=== PATIENT | male | born 1985 | race Caucasian/White ===

== ENCOUNTER 2019-06-18 19:22 | Emergency (ER) | payer BC ==
[2019-06-18] MEDS ORDERED: Lactated Ringers 1,000 ML IV ONE (19:38)
[2019-06-18] MEDS ORDERED: Pantoprazole 40 MG Vial IVPUSH ONE (19:38)
[2019-06-18] MEDS ORDERED: Famotidine 20 MG/2 ML SDV IVPUSH ONE (19:38)
--- NOTE | 2019-06-18 19:38 | EDM.PDOC ---
ED HPI GENERAL MEDICAL PROBLEM - General Chief Complaint: Abdominal Pain Stated Complaint: RIGHT ABDOMINAL PAIN Time Seen by Provider: 06/18/19 19:30 Source of Information: Denies: Old Records (No [facility] records available) History Limitations: Reports: No Limitations - History of Present Illness INITIAL COMMENTS - FREE TEXT/NARRATIVE: The patient drove himself to the emergency room via private automobile for evaluation of 09/05 mostly right lower quadrant abdominal pain-type pain with symptoms starting at about 10 AM yesterday morning. He did take some OTC Tums at that time with only minimal improvement of his symptoms. Since that time he has had increased diarrhea with almost hourly episodes yesterday evening, including some mild gross hematochezia. He denies any history of poisoning, infection, or previous-type symptoms. No recent history of other abdominal pain , heartburn, emesis, melena, gross hematochezia, or any food intolerance, including fatty foods, etc. with some nausea earlier today. He denies any gross hematuria, colic, or other UTI symptoms. The patient also denies any recent fever, cough, wheezing, dyspnea, etc. with no recent use of antipyretic medication. In addition, some mild anorexia today with the patient only drinking water with last fluid intake about 1.5 hours prior to arrival. He did eat solid food 9 PM yesterday. Onset: Gradual Onset Date: 06/17/19 Onset Time: 10:00 Duration: Getting Worse, Intermittent Location: Reports: Abdomen. Denies: Head, Face, Neck, Chest, Back, Pelvis, Upper Extremity, Left, Upper Extremity, Right, Lower Extremity, Left, Lower Extremity, Right, Radiates to Quality: Reports: Stabbing, Other (Cramping) Severity: Moderate Improves with: Reports: None Worsens with: Reports: None Context: Reports: Other (As above). Denies: Sick Contact, Trauma Associated Symptoms: Reports: Loss of Appetite, Nausea/Vomiting (As above). 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 Denies: Allergic Rhinitis, Cataract, Glaucoma, Hard of Hearing, Macular Degeneration, Otitis Media, Retinal Detachment, Sinusitis Other HEENT History: Patient wears glasses and soft contact lenses. Cardiovascular History: Reports: Hypertension, Other (See Below). Denies: Afib , Aneurysm, Arrhythmia, Blood Clots/VTE/DVT, CAD, Heart Murmur, High Cholesterol , OH, Syncope Other Cardiovascular History: History of borderline hypertension with no previous medical therapy. He does not know his cholesterol status. Respiratory History: Reports: None. Denies: Asthma, Bronchitis, Recurrent, COPD , Intubation, Previous, PE, Pneumonia, Recurrent, Pneumothorax, Sleep Apnea, TB Gastrointestinal History: Reports: None. Denies: Bowel Obstruction, Celiac Disease, Cholelithiasis, Chronic Constipation, Chronic Diarrhea, GERD, GI Bleed , Hepatitis, Inflammatory Bowel Disease, Irritable Bowel Syndrome, Jaundice, Pancreatitis, PUD Genitourinary History: Reports: None. Denies: Acute Renal Failure, Chronic Renal Insuffiency, Renal Calculus, STD, Urinary Incontinence, UTI, Recurrent Musculoskeletal History: Reports: None. Denies: Amputation, Arthritis, Back Pain, Chronic, Fracture, Gout, Neck Pain, Chronic, Osteoarthritis, RA, SLE Neurological History: Reports: Concussion, Head Trauma, Other (See Below). Denies: CVA, Headaches, Chronic, Migraines, MS, Neuropathy, Peripheral, Parkinson's, Seizure, TIA, Vertigo Other Neuro History: Head concussion secondary to hockey at about age 18. Psychiatric History: Reports: None. Denies: Abuse, Victim of, ADD, ADHD, Addiction, Anxiety, Depression, Psych Hospitalization(s), PTSD, Suicide Attempt , Suicidal Ideation Endocrine/Metabolic History: Reports: None. Denies: Diabetes, Type I, Diabetes , Type II, Diabetes Mellitus, Type 3c, Hypothyroidism, IDDM Hematologic History: Reports: None. Denies: Anemia, Blood Transfusion(s) Immunologic History: Reports: None. Denies: AIDS, SLE Oncologic (Cancer) History: Reports: None. Denies: Basal Cell Carcinoma, Colon , Hodgkin's Lymphoma, Leukemia, Lymphoma, Malignant Melanoma, Non-Hodgkin's Lymphoma, Squamous Cell Carcinoma Dermatologic History: Reports: None. Denies: Eczema, Psoriasis - Infectious Disease History Infectious Disease History: Reports: None. Denies: C-Difficile, Chicken Pox, Measles, Meningitis, Mononucleosis, Mumps, Pertussis (Whooping Cough), Rheumatic Fever, Rubella, Scarlet Fever, Shingles, TB, VRE - Past Surgical History Head Surgeries/Procedures: Reports: None HEENT Surgical History: Reports: Oral Surgery, Other (See Below). Denies: Adenoidectomy, Cataract Surgery, Eye Surgery, Laser Surgery, LASIK, Myringotomy w Tube(s), Naso-Sinus Surgery, Tonsillectomy Other HEENT Surgeries/Procedures: [place] teeth extraction 4 at about age 25. Cardiovascular Surgical History: Reports: None. Denies: Varicose Respiratory Surgical History: Reports: None. Denies: Thoracentesis GI Surgical History: Reports: None. Denies: Appendectomy, Cholecystectomy, Colonoscopy, EGD, Hernia, Abdominal, Hernia, Inguinal, Hernia Repair/Other Male Surgical History: Reports: Circumcision, Other (See Below). Denies: Vasectomy Other Male Surgeries/Procedures: Circumcision as an infant. Endocrine Surgical History: Reports: None. Denies: Thyroid Biopsy Neurological Surgical History: Reports: None. Denies: C-Spine, Discectomy, Laminectomy, Lumbar Spine, Sacral Spine, Spinal Fusion, Thoracic Spine, Vertebroplasty Musculoskeletal Surgical History: Denies: Arthroscopic Knee, Arthroscopic Procedure, Carpal Tunnel, Ganglion Cyst, Joint Replacement, ORIF, Shoulder Surgery Oncologic Surgical History: Reports: None Dermatological Surgical History: Reports: None Social & Family History - Family History GI: Reports: None. Denies: Celiac Disease, Cholelithiasis, Colon Polyps, Diverticulitis, Diverticulosis, GERD, GI bleed, Inflammatory Bowel Disease, Irritable Bowel Syndrome, PUD Hematologic: Reports: Polycthemia, Other (See Below) Other Hematologic Family History: Maternal grandmother with polycythemia. - Tobacco Use Smoking Status *Q: Current Every Day Smoker Tobacco Use Within Last Twelve Months: Snuff/Dip Years of Tobacco use: 18 Packs/Tins Daily: 0.5 Packs/Tins Daily Comment: Started at age 18. Used Tobacco, but Quit: No Smoking Cessation Information Provided To Patient: Yes Second Hand Smoke Exposure: No Second Hand Smoke Education Provided: No - Caffeine Use Caffeine Use: Reports: Energy Drinks (One can per day), Soda (2 sodas per day). Denies: Coffee, Tea - Alcohol Use Alcohol Use History: Yes Days Per Week of Alcohol Use: 3 Number of Drinks Per Day: 6 Number of Drinks Per Day Comment: Usually beer. No previous DWIs, problems with alcohol abuse, etc. 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 ED EXAM, GI/ABD - Physical Exam Exam: See Below Exam Limited By: No Limitations General Appearance: Alert, WD/WN, No Apparent Distress Eyes: Bilateral: Normal Appearance (No nystagmus. Patient wearing glasses), EOMI Ears: Normal External Exam, Normal Canal, Hearing Grossly Normal, Normal TMs Nose: Normal Inspection, Normal Mucosa, No Blood Throat/Mouth: Normal Inspection, Normal Lips, Normal Teeth, Normal Gums, Normal Oropharynx, Normal Voice, No Airway Compromise. No: Dysphagia, Perioral Cyanosis Head: Atraumatic, Normocephalic. No: Facial Swelling, Facial Tenderness, Sinus Tenderness Neck: Normal Inspection, Supple, Non-Tender, Full Range of Motion. No: Lymphadenopathy (L), Lymphadenopathy (R), Thyromegaly Respiratory/Chest: No Respiratory Distress, Lungs Clear, Normal Breath Sounds, No Accessory Muscle Use, Chest Non-Tender. No: Pleural Rub, Retractions Cardiovascular: Normal Peripheral Pulses, Regular Rate, Rhythm, No Edema, No Gallop, No JVD, No Murmur, No Rub. No: Gallop/S3, Gallop/S4, Friction Rub GI/Abdominal Exam: No Organomegaly, No Distention, No Abnormal Bruit, No Mass, Pelvis Stable, Tender (Mild to moderate right lower quadrant), Abnormal Bowel Sounds (Mild diffuse increased however not high-pitched in nature). No: Guarding, Rigid, Rebound, Hernia (Male) Exam: Deferred Rectal (Males) Exam: Normal Exam, Normal Rectal Tone, Prostate Normal. No: Black Stool, Bloody Stool, Fecal Impaction (Limited stool in rectal vault), Heme - Stool, Tenderness (No Lucien space tenderness) Back Exam: Normal Inspection, Full Range of Motion. No: CVA Tenderness (L), CVA Tenderness (R), Muscle Spasm Extremities: Normal Inspection, Normal Range of Motion, Non-Tender, No Pedal Edema, Normal Capillary Refill. No: Dru's Sign Neurological: Alert, Oriented, CN II-XII Intact, Normal Cognition, Normal Gait, Normal Reflexes (Negative Babinski's), No Motor/Sensory Deficits Psychiatric: Normal Affect, Normal Mood Skin Exam: Warm, Dry, Intact, Normal Color, No Rash, Tattoo(s) (Multiple). No: Diaphoretic, Ecchymosis, Jaundice, Pallor, Petechiae Lymphatic: No Adenopathy Course - Vital Signs Last Recorded V/S: Last Vital Signs Temp 36.8 C 06/18/19 19:25 Pulse 100 06/18/19 19:25 Resp 16 06/18/19 19:25 BP 149/97 H 06/18/19 19:25 Pulse Ox 100 06/18/19 19:25 Vital Signs - 24 hr 06/18/19 06/18/19 19:25 22:41 Temperature [ 36.8 C 37.1 C Temporal] Pulse, 100 67 Peripheral [ Pulse Oximetry] Respiratory 16 16 Rate Blood Pressure 149/97 H 128/80 [Right Upper Arm] O2 Sat by Pulse 100 100 Oximetry - Orders/Labs/Meds Orders: Active Orders 24 hr Category Date Time Status Communication Order [RC] ROUTINE Care 06/18/19 22:30 Ordered Peripheral IV Care [RC] . DIRECTED Care 06/18/19 19:39 Active Nothing Per Oral Diet [DIET] Diet 06/18/19 Breakfast Active Abdomen Pelvis w Cont [CT] Stat Exams 06/18/19 19:47 Taken Sodium Chloride 0.9% [Saline Flush] Med 06/18/19 19:38 Active 10 ml FLUSH ASDIRECTED PRN Obtain Past Medical Record [OM.PC] Urgent Oth 06/18/19 19:38 Active Peripheral IV Insertion Adult [OM.PC] Stat Oth 06/18/19 19:38 Ordered Resuscitation Status Stat Resus Stat 06/18/19 19:38 Ordered Medication Orders Sodium Chloride (Saline Flush) 10 ml FLUSH ASDIRECTED PRN PRN Reason: Keep Vein Open Last Admin: 06/18/19 20:37 Dose: 10 ml Admin: 06/18/19 20:09 Dose: 10 ml Admin: 06/18/19 19:49 Dose: 10 ml Labs: Laboratory Tests 06/18/19 06/18/19 06/18/19 Range/Units 19:43 19:43 19:43 WBC 14.8 H (4.0-10.2) K/uL RBC 5.55 H (4.33-5.41) M/uL Hgb 18.2 H* (13.1-16.8) g/dL Hct 49.2 H (39.0-49.0) % MCV 88.6 (84.0-98.0) fL MCH 32.8 (28.2-33.3) pg MCHC 37.0 H (31.7-36.0) g/dL RDW 13.3 (11.2-14.1) % Plt Count 284 (150-350) K/uL Neut % (Auto) 78.1 (45.0-80.0) % Lymph % (Auto) 12.1 (10.0-50.0) % Andrew % (Auto) 9.1 (2.0-14.0) % Eos % (Auto) 0.5 (0.0-5.0) % Baso % (Auto) 0.2 (0.0-2.0) % Neut # (Auto) 11.52 H (1.40-7.00) K/uL Lymph # (Auto) 1.79 (0.50-3.50) K/uL Andrew # (Auto) 1.35 H (0.00-1.00) K/uL Eos # (Auto) 0.07 (0.00-0.50) K/uL Baso # (Auto) 0.03 (0.00-0.20) K/uL PT 10.3 (9.5-12.0) SEC INR 1.0 APTT 26.7 (24.5-32.8) SEC Sodium (136-145) mmol/L Potassium (3.5-5.1) mmol/L Chloride (98-107) mmol/L Carbon Dioxide (21.0-32.0) mmol/L BUN (7-18) mg/dL Creatinine (0.51-1.17) mg/dL Est Cr Clr Drug Dosing Estimated GFR (MDRD) mL/min Glucose (74-106) mg/dL Lactic Acid (0.4-2.0) mmol/L Uric Acid (2.6-7.2) mg/dL Calcium (8.5-10.1) mg/dL Magnesium (1.8-2.4) mg/dL Total Bilirubin (0.2-1.0) mg/dL AST (15-37) U/L ALT (12-78) U/L Alkaline Phosphatase (46-116) IU/L Total Protein (6.4-8.2) g/dL Albumin (3.4-5.0) g/dL Amylase 32 (25-115) U/L Lipase (73-393) U/L 06/18/19 06/18/19 Range/Units 19:43 19:43 WBC (4.0-10.2) K/uL RBC (4.33-5.41) M/uL Hgb (13.1-16.8) g/dL Hct (39.0-49.0) % MCV (84.0-98.0) fL MCH (28.2-33.3) pg MCHC (31.7-36.0) g/dL RDW (11.2-14.1) % Plt Count (150-350) K/uL Neut % (Auto) (45.0-80.0) % Lymph % (Auto) (10.0-50.0) % Andrew % (Auto) (2.0-14.0) % Eos % (Auto) (0.0-5.0) % Baso % (Auto) (0.0-2.0) % Neut # (Auto) (1.40-7.00) K/uL Lymph # (Auto) (0.50-3.50) K/uL Andrew # (Auto) (0.00-1.00) K/uL Eos # (Auto) (0.00-0.50) K/uL Baso # (Auto) (0.00-0.20) K/uL PT (9.5-12.0) SEC INR APTT (24.5-32.8) SEC Sodium 141 (136-145) mmol/L Potassium 3.5 (3.5-5.1) mmol/L Chloride 102 (98-107) mmol/L Carbon Dioxide 25.7 (21.0-32.0) mmol/L BUN 10 (7-18) mg/dL Creatinine 0.90 (0.51-1.17) mg/dL Est Cr Clr Drug Dosing TNP Estimated GFR (MDRD) > 60 mL/min Glucose 92 (74-106) mg/dL Lactic Acid 1.4 (0.4-2.0) mmol/L Uric Acid 5.6 (2.6-7.2) mg/dL Calcium 9.1 (8.5-10.1) mg/dL Magnesium 1.9 (1.8-2.4) mg/dL Total Bilirubin 0.7 (0.2-1.0) mg/dL AST 25 (15-37) U/L ALT 55 (12-78) U/L Alkaline Phosphatase 64 (46-116) IU/L Total Protein 8.2 (6.4-8.2) g/dL Albumin 4.2 (3.4-5.0) g/dL Amylase (25-115) U/L Lipase 32 L (73-393) U/L Meds: Medications Generic Name Dose Route Start Last Admin Trade Name Freq PRN Reason Stop Dose Admin Sodium Chloride 10 ml 06/18/19 19:38 06/18/19 20:37 Saline Flush FLUSH 10 ml ASDIRECTED PRN Administration Keep Vein Open Discontinued Medications Generic Name Dose Route Start Last Admin Trade Name Freq PRN Reason Stop Dose Admin Diatrizoate Meglum/Diatrizoate Sod 30 ml 06/18/19 20:05 06/18/19 21:24 Gastrografin 37% PO 06/18/19 20:06 30 ml ONETIME ONE Administration Famotidine 40 mg 06/18/19 19:38 06/18/19 19:49 Pepcid IVPUSH 06/18/19 19:39 40 mg ONETIME ONE Administration Lactated Ringer's 1,000 mls @ 999 mls/hr 06/18/19 19:38 06/18/19 19:50 Ringers, Lactated IV 06/18/19 20:38 999 mls/hr .BOLUS ONE Administration Ceftriaxone Sodium 1 gm/ 100 mls @ 200 mls/hr 06/18/19 19:53 06/18/19 20:06 Sodium Chloride IV 06/18/19 20:22 200 mls/hr ONETIME ONE Administration Metronidazole 500 mg/ Premix 100 mls @ 100 mls/hr 06/18/19 19:54 06/18/19 20: 36 IV 06/18/19 20:53 100 mls/hr ONETIME ONE Administration Iopamidol 100 ml 06/18/19 20:05 06/18/19 21:24 Isovue-300 (61%) IVPUSH 06/18/19 20:06 100 ml ONETIME ONE Administration Pantoprazole Sodium 40 mg 06/18/19 19:38 06/18/19 19:49 Protonix Iv IVPUSH 06/18/19 19:39 40 mg ONETIME ONE Administration - Radiology Interpretation Free Text/Narrative:: Telephone consultation at 22:05 hours with the radiology department at [facility] with preliminary verbal report of CT scan of the abdomen and pelvis with both oral and IV contrast. Note positive moderate right sided diffuse edema , inflammation, etc. consistent with colitis with no evidence of acute hemorrhage, thrombosis, splenomegaly, etc. No evidence of thrombosis in the mesenteric arteries. No abscess, free air, etc. CT Results Date: 06/18/19 CT Results Time: 22:05 Departure - Departure Time of Disposition: 22:47 Disposition: DC/Tfer to Acute Hospital 02 Condition: Good Clinical Impression: Tobacco abuse counseling, Colitis, Polycythemia Abdominal pain Qualifiers: Abdominal location: right lower quadrant Qualified Code(s): R10.31 - Right lower quadrant pain Hypertension Qualifiers: Hypertension type: essential hypertension Qualified Code(s): I10 - Essential ( primary) hypertension - Discharge Information *PRESCRIPTION DRUG MONITORING PROGRAM REVIEWED*: Not Applicable *COPY OF PRESCRIPTION DRUG MONITORING REPORT IN PATIENT ARIADNA: Not Applicable Instructions: Smokeless Tobacco Information, Adult, Colitis Referrals: Nieves Campo PA [Primary Care Provider] - Forms: ED Department Discharge, Interfacility Transfer EMTALA Additional Instructions: 1. Your friend should drive you to [facility], [place] location, [place] for direct admission into that facility 2. STRICT nothing to eat or drink until otherwise directed by [place] physicians. 3. Continue to observe your blood pressures closely through your regular provider with decreased caffeine intake as recommended 4. Stop all tobacco use [facility] as directed/per provided information and consider contacting [employer], etc.. 5. Immediately after this visit verify that your cellular telephone's voicemail has been activated and is empty. Also verify that your home telephone 's answering machine is operating properly and has space to receive messages. Note that it is sometimes necessary for us to be able to contact you at a later date to discuss your medical care. 6. Please remember that we are ALWAYS here for you and want to answer any questions you may have. Feel free to call the hospital any time and we call you back [place]. Sepsis Event Note - Focused Exam Vital Signs: Vital Signs Temp Pulse Resp BP Pulse Ox 06/18/19 19:25 36.8 C 100 16 149/97 H 100 Date Exam was Performed: 06/18/19 Time Exam was Performed: 22:31 - Problem List & Annotations (1) Colitis SNOMED Code(s): 59483105 Code(s): K52.9 - NONINFECTIVE GASTROENTERITIS AND COLITIS, UNSPECIFIED Status: Acute Priority: High Current Visit: Yes Onset Date: ~06/18/19 Annotation/Comment:: Newly diagnosed moderate colitis as above with patient immediately started on IV Rocephin and IV Flagyl prior to obtaining CT scan results. No evidence of peritonitis at this time by clinical exam. Telephone consultation at 22:[address] Greer, hospitalist at [facility] in [place], who does accept the patient for direct admission, with no further treatment recommendations given. She is aware of private automobile transfer with his friend to drive him to the hospital. Patient discharged with saline lock in place. Note the patient was also given a 1 L IV bolus of lactated Ringer's prior to discharge/transfer. GI/surgical consultation depending on his clinical course. No Family history of ulcerative colitis or Crohn's disease, although the patient may benefit from a colonoscopy in about 4 6 weeks. Patient will remain nothing by mouth as per discharge instructions. Clinical exam and vital signs were stable at time of discharge. (2) Abdominal pain SNOMED Code(s): 68482202 Code(s): R10.9 - UNSPECIFIED ABDOMINAL PAIN Status: Acute Priority: High Current Visit: Yes Onset Date: 06/17/19 Annotation/Comment:: Secondary to moderate right-sided colitis as above. Qualifiers: Abdominal location: right lower quadrant Qualified Code(s): R10.31 - Right lower quadrant pain (3) Polycythemia SNOMED Code(s): 981400497 Code(s): D75.1 - SECONDARY POLYCYTHEMIA Status: Acute Priority: High Current Visit: Yes Onset Date: 06/18/19 Annotation/Comment:: Newly diagnosed with positive family history of polycythemia in maternal grandmother as above. No evidence of splenomegaly, thrombi, etc. by CT scan as above. Recommend hemeoncology consultation with consideration of further workup, including possible bone marrow needle aspiration biopsy, phlebotomy, etc.. (4) Hypertension SNOMED Code(s): 42390162 Code(s): I10 - ESSENTIAL (PRIMARY) HYPERTENSION Status: Chronic Priority : Medium Current Visit: Yes Annotation/Comment:: Previous medical therapy. Note moderate caffeine intake. Patient was encouraged to discontinue all energy drinks and decrease his caffeine intake. Continue to observe closely by his accepting and regular providers with initiation of medical therapy depending on his clinical course. Qualifiers: Hypertension type: essential hypertension Qualified Code(s): I10 - Essential (primary) hypertension (5) Tobacco abuse counseling SNOMED Code(s): 151946836, [id number], 919228855 Code(s): Z71.6 - TOBACCO ABUSE COUNSELING Status: Chronic Priority: Medium Current Visit: Yes Annotation/Comment:: Patient strongly encouraged to discontinue chewing tobacco use. He was provided chewing tobacco cessation information and also counseled on the use of Nicorette gum, etc. - Problem List Review Problem List Initiated/Reviewed/Updated: Yes - My Orders Last 24 Hours: My Active Orders 06/18/19 19:38 Sodium Chloride 0.9% [Saline Flush] 10 ml FLUSH ASDIRECTED PRN Obtain Past Medical Record [OM.PC] Urgent Peripheral IV Insertion Adult [OM.PC] Stat Resuscitation Status Stat 06/18/19 19:39 Peripheral IV Care [RC] . DIRECTED 06/18/19 19:47 Abdomen Pelvis w Cont [CT] Stat 06/18/19 22:30 Communication Order [RC] ROUTINE 06/18/19 Breakfast Nothing Per Oral Diet [DIET] - Assessment/Plan Last 24 Hours: My Active Orders 06/18/19 19:38 Sodium Chloride 0.9% [Saline Flush] 10 ml FLUSH ASDIRECTED PRN Obtain Past Medical Record [OM.PC] Urgent Peripheral IV Insertion Adult [OM.PC] Stat Resuscitation Status Stat 06/18/19 19:39 Peripheral IV Care [RC] . DIRECTED 06/18/19 19:47 Abdomen Pelvis w Cont [CT] Stat 06/18/19 22:30 Communication Order [RC] ROUTINE 06/18/19 Breakfast Nothing Per Oral Diet [DIET] Assessment:: As above Plan: As above. Extensive precautions were given to the patient, who is in agreement with the treatment plan. See Patient Instructions for further treatment and plan.
[2019-06-18] MEDS: Sodium Chloride 0.9% 10 ML Syringe FLUSH PRN ×3 (19:49→20:37)
[2019-06-18] MEDS ORDERED: cefTRIAXone 1 GM in Sodium Chloride 0.9% 100 ML IV ONE (19:53)
[2019-06-18] MEDS ORDERED: metroNIDAZOLE/Normal Saline 500 MG in Premix Bag 1 BAG IV ONE (19:54)
[2019-06-18] MEDS ORDERED: Diatrizoate Meglumine/Diatrizoate Sodium 37% 30 ML Bottle PO ONE (20:05)
[2019-06-18] MEDS ORDERED: Iopamidol 612 MG/ML 100 ML Bottle IVPUSH ONE (20:05)
[2019-06-18 20:29] LABS: CHLORIDE,CL 102 mmol/L (98-107); SODIUM,NA 141 mmol/L (136-145)
[2019-06-18 20:45] LABS: PTT,PARTIAL THROMBOPLSTIN TIME 26.7 SEC (24.5-32.8)
[2019-06-18 22:42] VITALS: BP 128/80; PULSE 67
== END 2019-06-18 22:47 ==
LOC: LL.ED 19:22
DX: K52.9 Noninfective gastroenteritis and colitis, unspecified (principal); D75.1 Secondary polycythemia; I10 Essential (primary) hypertension; Z71.6 Tobacco abuse counseling; F17.210 Nicotine dependence, cigarettes, uncomplicated
CPT/HCPCS: 36415; 74177; 80053; 82150; 82272; 83605; 83690; 83735; 84550; 85025; 85610; 85730; 96361; 96365; 96367; 96375; 99285-25; C9113; J0696; J3490; J7050; J7120; Q9963; Q9967